=== PATIENT | female | born 1995 | race Two or more races ===

== ENCOUNTER 2024-01-13 16:13 | Emergency (ER) | payer OTHER ==
[~2024-01-13] VITALS: Ht 160 cm; Wt 61.4 kg
[2024-01-13 16:26] VITALS: BP 124/86; PULSE 114; RESP 18; TEMP 98.4
== END 2024-01-13 19:16 | disposition home or self-care (01) ==
LOC: EMS 16:58
DX: S13.4XXA Sprain of ligaments of cervical spine, initial encounter (principal); S10.93XA Contusion of unspecified part of neck, initial encounter; V49.88XA Car occupant (driver) (passenger) injured in other specified transport accidents, initial encounter; Y93.89 Activity, other specified; Y92.89 Other specified places as the place of occurrence of the external cause; Y99.8 Other external cause status
CPT/HCPCS: 71045; 72040; 72070; 72100; 99284